=== PATIENT | female | born 1960 | race American Indian/Alaskan Native ===

== ENCOUNTER 2018-10-13 09:53 | Emergency (ER) | payer OTHER ==
[2018-10-13] MEDS ORDERED: DUONEB *Not for PRN Use IH ONE (10:20)
[2018-10-13] MEDS ORDERED: TESSALON PERLES PO ONE (10:20)
[2018-10-13] MEDS ORDERED: NORVASC PO ONE (10:20)
--- NOTE | 2018-10-13 10:25 | Emergency Department Report ---
HPI - General Chief Complaint: Upper Respiratory Infection Time Seen by Provider: 10/13/18 10:12 - HPI HPI: 57-year-old female presents to the emergency department with a three-week history of a mixed dry and productive cough. Although she says she is unsure whether she has a lot of mucus in her chest, she says that it feels like she has trouble getting the mucus out. She also complains of elevated blood pressure as she has been out of her hydrochlorothiazide and amlodipine for the past 2 months. She just moved to this area and therefore does not have a regular physician. She denies any tobacco use. She has a history of hyper tension. She denies any chest pain, back pain, fever, nausea, vomiting or diaphoresis. She does complain of some tightness when breathing recently that she relates to the high pollen count. ED Past Medical Hx - Past Medical History Previous Medical History?: Yes Hx Hypertension: Yes - Surgical History Past Surgical History?: Yes Additional Surgical History: left foot, partial hysterectomy - Social History Smoking Status: Never Smoker Substance Use Type: None - Medications Home Medications: Home Medications Medication Instructions Recorded Confirmed Last Taken Type ALBUTEROL Inhaler (OR & NICU) 2 puff IH QID PRN #1 inhalation 10/13/18 Unknown Rx [ProAir HFA Inhaler] Benzonatate [Tessalon Perles] 100 mg PO Q8HR PRN #20 capsule 10/13/18 Unknown Rx amLODIPine [Norvasc] 7.5 mg PO DAILY #45 tab 10/13/18 Unknown Rx hydroCHLOROthiazide [HCTZ] 25 mg PO QDAY #30 tablet 10/13/18 Unknown Rx ED Review of Systems ROS: Stated complaint: CONGESTION 3WKS/HBP Other details as noted in HPI Comment: All other systems reviewed and negative Constitutional: denies: chills, fever Eyes: denies: eye pain, vision change ENT: denies: ear pain, throat pain Cardiovascular: chest pain (chest tightness). denies: edema Gastrointestinal: denies: abdominal pain, vomiting Genitourinary: denies: dysuria, discharge Musculoskeletal: denies: back pain, arthralgia Skin: denies: rash, lesions Neurological: denies: headache, weakness Physical Exam - Physical Exam Vital Signs: Vital Signs 10/13/18 09:57 Temperature 97.9 F Pulse Rate 75 Respiratory 20 Rate Blood Pressure 195/83 O2 Sat by Pulse 100 Oximetry Physical Exam: GENERAL: The patient is well-developed well-nourished. HEENT: Normocephalic. Atraumatic. Patient has moist mucous membranes. EYES: Extraocular motions are intact. NECK: Supple. Trachea is midline. CHEST/LUNGS: Clear to auscultation. An occasional dry cough is heard during examination. There is no respiratory distress noted. HEART/CARDIOVASCULAR: Regular. There is no tachycardia. There is no obvious murmur. ABDOMEN: Abdomen is soft, nontender. Patient has normal bowel sounds. There is no abdominal distention. SKIN: Skin is warm and dry. NEURO: The patient is awake, alert, and oriented. The patient is cooperative. The patient has no focal neurologic deficits. The patient has normal speech. MUSCULOSKELETAL: There is no tenderness or deformity. There is no limitation range of motion. There is no evidence of acute injury. ED Course Vital Signs 10/13/18 09:57 Temperature 97.9 F Pulse Rate 75 Respiratory 20 Rate Blood Pressure 195/83 O2 Sat by Pulse 100 Oximetry ED Medical Decision Making - Lab Data Result diagrams: 10/13/18 10:38 10/13/18 10:38 - EKG Data -: EKG Interpreted by Me EKG shows normal: sinus rhythm, axis, intervals, QRS complexes, ST-T waves Rate: normal - EKG Data When compared to previous EKG there are: previous EKG unavailable Interpretation: normal EKG - Radiology Data Radiology results: image reviewed interpreted by me: Chest x-ray does not show any pneumothorax, pleural effusion, pneumonia or obvious focal consolidation. - Medical Decision Making This patient presents with a three-week history of a mixed dry and productive cough and some chest congestion. On examination she has an occasional cough. There is no tachypnea or accessory muscle use. Chest x-ray does not show any pleural effusions, pneumonia, pneumothorax, consolidation, or any other acute processes. An EKG was done that is normal without ST elevation RI, ischemia or dysrhythmia. The patient did not complain of any chest pain, she was given a cardiac evaluation that included a negative troponin. The rest of the blood work was unremarkable as well. She was given a breathing treatment and a Tessalon Perle and a Decadron upon reevaluation she was feeling improved. She will be discharged home with an albuterol inhaler and Tessalon Perles and instructions to follow up with her primary care physician. She will return to the ER with any worsening of her symptoms or any acute distress. Critical Care Time: No Critical care attestation.: If time is entered above; I have spent that time in minutes in the direct care of this critically ill patient, excluding procedure time. ED Disposition Clinical Impression: Bronchitis Upper respiratory infection Qualifiers: URI type: unspecified viral URI Qualified Code(s): J06.9 - Acute upper respiratory infection, unspecified Hypertension Qualifiers: Hypertension type: essential hypertension Qualified Code(s): I10 - Essential (primary) hypertension Disposition: TO HOME OR SELFCARE Is pt being admited?: No Condition: Stable Instructions: Upper Respiratory Infection (ED), Acute Bronchitis (ED), Hypertension (ED) Additional Instructions: Please follow-up with your primary care physician in the next few days. Return to the emergency Department with any worsening of your symptoms or any acute distress. I am giving you a refill of your blood pressure medications. Try to stay away from foods that are high in salt and caffeinated products to help with your blood pressure. Keep a blood pressure log. Prescriptions: hydroCHLOROthiazide [HCTZ] 25 mg PO QDAY #30 tablet amLODIPine [Norvasc] 7.5 mg PO DAILY #45 tab ALBUTEROL Inhaler (OR & NICU) [ProAir HFA Inhaler] 2 puff IH QID PRN #1 inhalation PRN Reason: Shortness Of Breath Benzonatate [Tessalon Perles] 100 mg PO Q8HR PRN #20 capsule PRN Reason: Cough Referrals: TISHA VILLAGOMEZ MD [Staff Physician] - 2-3 Days [facility] [Outside] - 2-3 Days Time of Disposition: 12:09 Heart Score - HEART Score History: Slightly suspicious EKG: Normal Age: 45-65 Risk factors: 1-2 risk factors Troponin: < normal limit HEART Score: 2 - Critical Actions Critical Actions: 0-3 pts:0.9-1.7%risk of adverse cardiac event.Candidate for discharge
[2018-10-13 11:15] LABS: Basophils # (Auto) 0.1 K/mm3 (0.0-0.1); Basophils % (Auto) 0.9 % (0.0-1.8); Eosinophils # (Auto) 0.2 K/mm3 (0.0-0.4); Eosinophils % (Auto) 3.8 % (0.0-4.3); Hematocrit 42.3 % (30.3-42.9); Hemoglobin 13.9 gm/dl (10.1-14.3); Lymphocytes # (Auto) 2.1 K/mm3 (1.2-5.4); Mean Corpuscular HGB Conc 33 % (30-34); Mean Corpuscular Volume 83 fl (79-97); Monocytes # (Auto) 0.5 K/mm3 (0.0-0.8); Monocytes % (Auto) 8.5 % (0.0-7.3); Red Blood Count 5.09 M/mm3 (3.65-5.03); Red Cell Distribution Width 14.2 % (13.2-15.2)
[2018-10-13 11:17] LABS: BUN/Creatinine Ratio 15; Blood Urea Nitrogen 12 mg/dL (7-17); Calcium 8.7 mg/dL (8.4-10.2); Hemolysis Index 49
[2018-10-13 11:18] LABS: Platelet Count 247 K/mm3 (140-440)
[2018-10-13] MEDS ORDERED: DECADRON PO ONE (11:32)
[2018-10-13 12:19] VITALS: BP 147/71
--- NOTE | 2018-10-13 12:38 | XRay Report ---
PROCEDURE: XR CHEST ROUTINE 2V TECHNIQUE: PA and lateral views of the chest HISTORY: cough COMPARISONS: None available FINDINGS: No infiltrate, effusion, or pneumothorax. The cardiomediastinal silhouette is unremarkable. No focal osseous lesion is seen. IMPRESSION: No pulmonary infiltrates are identified. This document is electronically signed by Nunu Adhikari MD., October 13 2018 12:36:15 PM ET
== END 2018-10-13 12:21 | disposition home or self-care (01) ==
LOC: ED 09:53
DX: J06.9 Acute upper respiratory infection, unspecified (principal); J40 Bronchitis, not specified as acute or chronic; I10 Essential (primary) hypertension; Z90.711 Acquired absence of uterus with remaining cervical stump
CPT/HCPCS: 36415; 71046; 80048; 84484; 85025; 93005; 93010; 94640; 99284; J8540